=== PATIENT | male | born 1940 | race Caucasian/White ===

== ENCOUNTER → 2018-12-06 | Outpatient (CLI) | payer MEDICARE, OTHER ==
[~2018-12-06] MED LIST: AMYL1CAP56 PO; ASPI-1169 PO; BUDE10.2 IH; DEXL60CA3 PO; DUTA1CPM PO; ESCI20TA PO; FENO54TA PO; PANT20TA3 PO; ROSU10TA2 PO
== END | disposition home or self-care (01) ==
LOC: MSC 15:20
PROVIDERS: ATTEND Anesthesiology
DX: M46.96 Unspecified inflammatory spondylopathy, lumbar region (principal); M62.830 Muscle spasm of back; C61 Malignant neoplasm of prostate; R53.0 Neoplastic (malignant) related fatigue; G89.3 Neoplasm related pain (acute) (chronic); I25.810 Atherosclerosis of coronary artery bypass graft(s) without angina pectoris; Z95.5 Presence of coronary angioplasty implant and graft; Z79.899 Other long term (current) drug therapy; Z79.1 Long term (current) use of non-steroidal anti-inflammatories (NSAID)

== ENCOUNTER 2021-05-09 22:05 | Emergency (ER) | payer MEDICARE, OTHER ==
[~2021-05-09 22:05] MED LIST changes: +PANT20TA17 PO; -PANT20TA3 PO
--- NOTE | 2021-05-09 22:35 | NUR ---
PT LEFT AND CALLED PARAMEDICS INSTEAD. ANOTHER ACCOUNT HAS BEEN MADE FOR THE BISQUE GRADER RUN.
== END 2021-05-09 22:35 | disposition left against medical advice (07) ==
LOC: ER 22:16
DX: Z53.21 Procedure and treatment not carried out due to patient leaving prior to being seen by health care provider (principal)

== ENCOUNTER 2021-05-09 22:53 | Emergency (ER) | payer MEDICARE, OTHER ==
--- NOTE | 2021-05-10 00:05 | NUR ---
PATIENT LEFT WITHOUT BEING SEEN
== END 2021-05-10 00:05 | disposition left against medical advice (07) ==
LOC: ER 23:16
DX: Z53.21 Procedure and treatment not carried out due to patient leaving prior to being seen by health care provider (principal)